=== PATIENT | female | born 1960 | race Caucasian/White ===

== ENCOUNTER → 2016-09-15 | Outpatient (CLI) | payer OTHER | LOC: FIMAGING 14:29 | PROVIDERS: ATTEND Family Medicine | DX: Z12.31 Encounter for screening mammogram for malignant neoplasm of breast (principal) | CPT/HCPCS: G0202 ==

== ENCOUNTER → 2018-05-28 | Outpatient (CLI) | payer OTHER | LOC: BMCIMAGING 15:55 | PROVIDERS: ATTEND Internal Medicine | DX: R10.32 Left lower quadrant pain (principal) ==